=== PATIENT | male | born 1950 | race Caucasian/White ===

== ENCOUNTER 2016-05-08 05:15 | Day surgery (SDC) | payer OTHER ==
[~2016-05-08] VITALS: Ht 177.8 cm; Wt 86.2 kg
--- NOTE | ~2016-05-08 | H ---
[facility] [place] [address] HISTORY AND PHYSICAL Name: CHAUPANFILO Villafuerte Room #: [facility] M..#: [id number] Admission: Attend Phys: Lewis Thomas MD Discharge: Date of : 52 Report #: [id number] THIS REPORT FOR: //name// CC: Lewis Alejandro MD DATE OF SERVICE: 05/08/2016 PREOPERATIVE DIAGNOSIS: Bilateral inguinal hernia and umbilical hernia. HISTORY OF PRESENT ILLNESS: The patient is a 65-year-old who has had a right inguinal hernia for many years. He used to work for [employer] and was told on work physical that he had a hernia on the right. The patient started noticing the hernia getting larger at the end of 2014. Now, he is having more discomfort and pain with exercising. He walks on his treadmill. The patient would like to keep exercising. He complains of pressure in the right groin when he is constipated created. His bowels are working well. The patient has decreased urinary stream and gets up one time at night. No nausea, vomiting or bloating. No chronic cough or sneezing. 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 She also had a stroke. 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 MEDICATIONS: Includes aspirin 325 daily, Flomax 0.4 daily, escitalopram 40 mg, vitamin, Centrum Silver, glucosamine. PAST SURGICAL HISTORY: He has had a parotidectomy, has a ____ filter. He has had a spine surgery to remove the infection in 2013. ALLERGIES: The patient does not have any allergies. FAMILY HISTORY: Mother had liver cancer. He is adopted. Sibling with lung cancer. SOCIAL HISTORY: The patient quit smoking cigarette 2 years ago. Does not drink. REVIEW OF SYSTEMS: No headache, shortness of breath, chest pain, palpitation. No weakness or numbness. PHYSICAL EXAMINATION: [facility] [address] [place] [address] HISTORY AND PHYSICAL Name: RITCHIEPANFILO Noy Room #: [facility] M.R.#: [id number] Admission: Attend Phys: Lewis Thomas MD Discharge: Date of : 52 Report #: [id number] GENERAL: The patient is an elderly appearing male. He is not in acute distress, well developed, well nourished. HEENT: Pupils are reactive to light. Extraocular muscles are intact. NECK: Soft and supple, no masses, no JVD. LUNGS: Clear to auscultation. HEART: Regular rate and rhythm. He does have a systolic murmur. No gallop. CHEST: Lungs are clear to auscultation. ABDOMEN: Soft, nondistended, nontender, no mass, no ascites. The patient does have an umbilical hernia present. The patient has bilateral inguinal hernia, right is larger than the left. Testicles are descended. Both hernias are reducible. No testicular mass is detected. EXTREMITIES: No cyanosis, clubbing or edema. IMPRESSION: The patient is a 65-year-old who has bilateral inguinal hernia. The patient is complaining of discomfort on the right. Laparoscopic approach is discussed and recommended for repair of bilateral inguinal hernia and also this umbilical hernia. Properitoneal dissection was discussed. The patient will need to have a general anesthetic and the Celestin catheter placed with surgery. He understands the procedure, the risk of bleeding, infection, mesh infection, hernia recurrence and postop pain. The patient wishes to proceed. By: [id number] Lewis Thomas MD /nt
--- NOTE | ~2016-05-08 | O ---
[facility] [place] [address] OPERATIVE REPORT Name: PANIFLO RITCHIE Room #: 150-1 [facility]..#: [id number] Admission: 05/08/16 Attend Phys: Lewis Thomas MD Discharge: Date of : 52 Report #: [id number] THIS REPORT FOR: //name// CC: Lewis Alejandro MD DATE OF SERVICE: 05/08/2016 PREOPERATIVE DIAGNOSES: Bilateral inguinal hernia and umbilical hernia. POSTOPERATIVE DIAGNOSES: 1. Bilateral direct inguinal hernia. 2. Umbilical hernia. PROCEDURES PERFORMED: 1. Laparoscopic properitoneal repair of bilateral inguinal hernia with mesh. 2. Repair of umbilical hernia with mesh. SURGEON: Lewis Thomas M.D. ANESTHESIA: General anesthesia. ESTIMATED BLOOD LOSS: 5 mL. COMPLICATIONS: None. PROCEDURE NOTE: With the patient under general anesthesia, a Celestin catheter was placed. IV antibiotic was administered. Abdomen was prepped and draped in sterile fashion. A 0.25% Marcaine was used to anesthetize the skin and subcutaneous tissue. An incision was made adjacent to the umbilicus on the right side, carrying underneath the umbilicus for the umbilical hernia repair, anterior rectus sheath on the right side was identified. This was incised sharply, muscle was spread apart. The space between the muscle and the posterior sheath was then dissected with fingertip. An 11 mm balloon trocar was placed through the space. CO2 was administered. Properitoneal space was opened up with a 5 mm trocar placed about 2 inches below the umbilicus. This was placed under visualization into the properitoneal space. Dissection was carried out freeing the properitoneal space inferiorly. A direct defect identified on the right side. The lateral wall was free. The patient's peritoneum was very thin and a hole was made in the peritoneum, CO2 unfortunately traveled up into the abdominal cavity. This reduced the visualization of the properitoneal space. A 5 mm trocar was placed in the right upper abdomen under visualization. This allowed the intraperitoneal air to be evacuated. A second 5 mm trocar was placed in right lateral abdomen. Dissection on the left side was performed. There is a left direct hernia identified also. The internal ring is quite weak. [facility] [address] [place] [address] OPERATIVE REPORT Name: PANFILO RITCHIE Room #: 150-1 [facility].#: [id number] Admission: 05/08/16 Attend Phys: Lewis Thomas MD Discharge: Date of : 52 Report #: [id number] Peritoneal reflection on the left side was identified. Over the cord, there was no indirect hernia sac. The peritoneum was free and swept off of the cord structure. Right side dissection was then carried out. The hernia was reduced. The fat content was reduced from the defect, brought into the properitoneal space. There is a 2 cm direct defect, it was identified. Dissection laterally did not reveal an indirect sac. The peritoneum was free from the cord. A left-sided large 3DMax lightweight mesh was placed. This was opened up, mesh was tacked laterally to the wall with SorbaFix inferomedially to Ez's ligament with SorbaFix superomedially to the rectus muscle. Left side seated well. A second mesh was used for the right side. A large right-sided 3DMax lightweight mesh was used. This was opened up well too. This covered the direct defect well, covered the internal ring. The mesh was tacked lateral to the internal ring with SorbaFix to the abdominal wall, inferomedially to the Ez's ligament, superiorly to the rectus muscle. No bleeding was identified. CO2 was evacuated. Trocars removed. Small amount of air was placed in the intraabdominal trocar, this was used to visualize the intraabdominal content which appeared normal. Prior to the seating of the mesh, I did pull the peritoneum over each other to keep it from the mesh material. The last 5 mm trocars were then removed from the intraabdominal cavity. The umbilical hernia was dissected free. There was properitoneal fat pushing through the fascia defect. The fascia defect was about 2 cm circular defect. Fascia edges identified. The fascia edges were cleaned off. Hemostat was placed on the fascia edges. The properitoneal space was dissected free. Once the properitoneal space was opened up and reducing the hernia content, a small Ventralex ST patch was placed. This opened up well. The fascia defect was then closed with 0 Prolene suture in horizontal mattress fashion x 2. The original incision in the anterior rectus sheath was closed with 0 PDS [id number] x 2. The umbilicus skin was then sewn down to the fascia level. The skin incisions were all closed with 5-0 PDS and rectus with interrupted subcuticular fashion. Steri-Strips applied. Band-Aid used for dressing. The patient tolerated procedure well. By: 1223 [id number] Lewis Thomas MD /nt
[~2016-05-08 05:15] MED LIST: ASPIRIN EC325 MG PO; CATHFLO ACT2 MG/VIA1 IV; CEFAZOLIN2 GM/50 ML IV; CHILDREN'S ASPI81 MG; CITALOPRAM HBR40 MG PO; COLACE100 MG PO; FLOMAX0.4 MG PO; IBUPROFEN 800800 M1 PO; KLOR-CON 1010 MEQ; LINZESS145 MCG PO; LIPITOR10 MG; MIRALAX17 GM; MULTIVITAMINS1 EAC7 PO; NAFCILLIN 2 GM A2 G1; NICOTROL INHAL1 CAR1; NORCO 5-325 TA1 EACH PO; PEPCID20 MG; PEPCID20 MG PO; PERCOCET 10-321 EAC1; ROBAXIN 750 MG750 M1 PO; TRAMADOL 50 MG50 MG PO; TYLENOL EXTRA500 MG PO; TYLENOL325 MG; TYLENOL325 MG PO; VALIUM2 MG PO; VENTOLIN HFA 1818 GM INH
[2016-05-08 09:37] VITALS: BP 121/48
[2016-05-08] MEDS ORDERED: NORCO 5-325 TA1 EACH PO (11:54)
[2016-05-08 12:07] VITALS: BP 121/48
== END 2016-05-09 15:48 | disposition home or self-care (01) ==
LOC: OR 05:15 → TBA 05:15 → OR 09:10
DX: K40.20 Bilateral inguinal hernia, without obstruction or gangrene, not specified as recurrent (principal); K42.9 Umbilical hernia without obstruction or gangrene; F41.9 Anxiety disorder, unspecified; Z87.891 Personal history of nicotine dependence; Z98.890 Other specified postprocedural states
CPT/HCPCS: 50010; 50101; 50119; 50411; 50507; 50555; 50848; 53065; 53307; 56525; 56526; 62110; 62900; 64031; 70005

== ENCOUNTER → 2016-08-09 | Outpatient (CLI) | payer OTHER, MEDICARE ==
[~2016-08-09] VITALS: Ht 177.8 cm; Wt 83.9 kg
[~2016-08-09] MED LIST changes: +ATORVASTATIN CA40 MG PO
--- NOTE | ~2016-08-09 | EKG ---
[place] [address] [facility] [place] [address] ELECTROCARDIOGRAM REPORT Name: PANFILO RITCHIE [id number] Admission: 08/09/16 Attend Phys: Neil Christianson MD, Discharge: Date of : 52 Report #: [id number] THIS REPORT FOR: //name// [facility] Test Date: 2016-08-09 Test Time: 07:13:18 Pat Name: PANFILO RITCHIE Department: Room: Gender: Pick Up Driver: Merritt MONTELONGO : 1950 Requested By: Neil Christianson Order Number: [id number] MD: Neil Christianson Measurements Intervals Joanna Rate: 55 P: 75 UT: 135 QRS: -7 QRSD: 113 T: 13 QT: 438 QTc: 419 Interpretive Statements Sinus bradycardia Otherwise no significant abnormality Compared to ECG 08/23/2013 17:34:29 Sinus bradycardia is now present Electronically Signed On 08-09-2016 8:38:46 CDT by Neil Christianson [email or web address] <ELECTRONICALLY SIGNED> By: Neil Christianson MD, [facility] 08/09/16 0838 2 2 Neil Christianson MD, FAC /EPI
--- NOTE | ~2016-08-09 | CATHLAB ---
[facility] [address] [address] INVASIVE PROCEDURE REPORT Name: PANFILO RITCHIE Room #: REG [facility]#: [id number] Admission: 08/09/16 Attend Phys: Neil Christianson, Discharge: Date of : 52 Date of Service: 08/09/16 0828 Report #: [id number] THIS REPORT FOR: //name// APPROVED REPORT Patient Details Patient Status: Out-Patient Room #: The patient is a 65 year-old male Event Personnel Neil Christianson [employer] Sales Representative, Chantal Walsh RN RN, Madonna Gustafson Sandifer, David Monitor, Knisely, Ceola RN RN Indication Dyspnea Procedure Narrative The patient was brought electively to the Cardiac Catheterization Laboratory and was prepped and draped in a sterile manner. The Right Groin^ was infiltrated with 1% Lidocaine subcutaneous anesthesia. A PINNACLE 6FR Sheath #[id number] sheath was inserted into the RFA^. Coronary angiography was performed using coronary diagnostic catheters. The right coronary system was accessed and visualized with a JR4 catheter. The left coronary system was accessed and visualized with a JL4 catheter. The patient tolerated the procedure well and there were no complications associated with the procedure. Intraoperative Conscious Sedation Sedation start time: 7:50 Case end Time: 8:02 Fentanyl 50.0 mcg Versed 1.0 mg Fluoro Time: 0.56 minutes Dose: 93.1 mGy Contrast Type and Amount: Omnipaque 65 ml Coronary Angiography The patient's coronary anatomy is right dominant. [place] Artery Percent Stenosis Left Main: 0 % Prox LAD: 0 % Mid/Distal LAD: 0 % Circumflex: 0 % RCA: 0 % Ramus: 0 % Left Ventriculography [facility] [address] [place] [address] INVASIVE PROCEDURE REPORT Name: PANFILO RITCHIE Room #: REG [facility]#: [id number] Admission: 08/09/16 Attend Phys: Neil Christianson, Discharge: Date of : 52 Date of Service: 08/09/16827 Report #: [id number] Left Ventriculography was not performed. Hemodynamics The aortic pressure is 138/48 mmHg with a mean of 80 mmHg. Conclusion 1. Normal coronary vasculature. Right dominant system <ELECTRONICALLY SIGNED> By: Neil Christianson MD, FACC 08/09/16827 7 7 Neil Christianson MD, FACC /INF
[2016-08-09 07:04] VITALS: BP 124/45
== END ==
LOC: CATH 06:33
DX: R06.00 Dyspnea, unspecified (principal)

== ENCOUNTER → 2018-08-07 | Outpatient (CLI) | payer OTHER, MEDICARE | LOC: RAD 14:05 | DX: J84.10 Pulmonary fibrosis, unspecified (principal); I25.10 Atherosclerotic heart disease of native coronary artery without angina pectoris ==

== ENCOUNTER → 2019-03-06 | Outpatient (CLI) | payer OTHER, MEDICARE | LOC: RAD 10:48 | DX: J84.10 Pulmonary fibrosis, unspecified (principal) ==

== ENCOUNTER → 2019-07-04 | Outpatient (CLI) | payer OTHER, MEDICARE | LOC: SJCVC 13:18 | PROVIDERS: ATTEND Internal Medicine | DX: I35.1 Nonrheumatic aortic (valve) insufficiency (principal); I33.0 Acute and subacute infective endocarditis; E78.5 Hyperlipidemia, unspecified; I69.30 Unspecified sequelae of cerebral infarction; J43.2 Centrilobular emphysema; I25.118 Atherosclerotic heart disease of native coronary artery with other forms of angina pectoris; I10 Essential (primary) hypertension; Z79.899 Other long term (current) drug therapy; Z87.891 Personal history of nicotine dependence ==

== ENCOUNTER → 2019-07-11 | Outpatient (CLI) | payer OTHER, MEDICARE | LOC: SJCVC 13:26 | PROVIDERS: ATTEND Internal Medicine | DX: I10 Essential (primary) hypertension (principal) ==

== ENCOUNTER → 2019-12-03 | Outpatient (CLI) | payer OTHER, MEDICARE | LOC: LAB 14:18 | PROVIDERS: ATTEND Internal Medicine Gastroenterology | DX: Z01.812 Encounter for preprocedural laboratory examination (principal); Z20.828 Contact with and (suspected) exposure to other viral communicable diseases ==

== ENCOUNTER → 2019-12-09 | Outpatient (CLI) | payer OTHER, MEDICARE ==
[~2019-12-09] VITALS: Ht 177.8 cm; Wt 86.2 kg
[~2019-12-09] MED LIST changes: -ATORVASTATIN CA40 MG PO; +LIPITOR40 MG PO
--- NOTE | 2019-12-11 17:06 | PATH ---
[facility] [place] [address] PATHOLOGY RPT PROCEDURE Name: PUTNAMPANFILO ANDRE Room #: REG [facility] M.R.#: [id number] Admission: 12/09/19 Date of : 52 Discharge: Report #: [id number] Path Case #: [id number] L[facility] Accession Number: [id number] . 01 Material submitted: . PART A: colon - ASCENDING COLON POLYP X7. Modifiers: ascending PART B: colon - DESCENDING COLON POLYP X5. Modifiers: descending PART C: colon - SIGMOID COLON POLYP X2. Modifiers: sigmoid . 01 Clinical history: . HX OF POLYPS . 02 Diagnosis: A. Polyps x7, ascending colon polyps, endoscopic biopsy: - Multiple fragments of tubular adenoma. - Negative for high-grade dysplasia. . B. Polyps x5, descending colon polyps, endoscopic biopsy: - Multiple fragments of tubular adenoma as well as tubulovillous adenoma. - Negative for high-grade dysplasia. . C. Polyps x2, sigmoid colon, endoscopic biopsy: - Larger fragment showing a tubular adenoma without high-grade dysplasia. - Stalk showing unremarkable mucosa at margin. - One fragment showing hyperplastic polyp without any dysplasia. . 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 02 Electronically signed: . Linda Ray MD, Pathologist NPI- [id number] . 01 Gross description: . A. The specimen is received in formalin, labeled "Panfilo Putnam, ascending colon polyp x7". Received are multiple segments of pale zavala soft tissue ranging in size from 0.2 to 0.7 cm in maximum dimensions. The specimen is submitted entirely in cassette A1 and A2. . B. The specimen is received in formalin, labeled "Panfilo Putnam, descending colon polyp x5". Received are multiple segments of pale zavala soft tissue ranging in size from 0.2 to 0.7 cm in maximum dimensions. The specimen is submitted entirely in cassette B1 and B2. . C. The specimen is received in formalin, labeled "Panfilo Putnam, sigmoid colon polyp x2". Received are two segments of pale zavala soft tissue ranging in size from 0.5 to 1.7 cm in maximum dimensions. The larger [facility] [address] [place] [address] PATHOLOGY RPT PROCEDURE Name: CHAUPANFILO ANDRE Room #: REG CLI Mihir#: [id number] Admission: 12/09/19 Date of : 52 Discharge: Report #: [id number] Path Case #: [id number] segment has an attached stalk measuring 0.5 cm in length by 0.6 cm in diameter. The surgical margin is inked and the larger segment is serially sectioned. The specimen is submitted entirely in cassette C1 through C4. (CAA; 12/10/2019) QAC/QAC 12/10/2019 1339 Local . 02 Pathologist provided ICD-10: D12.2, D12.4, D12.5 . 02 CPT . 803437, 008304, 523729 Specimen Comment: A courtesy copy of this report has been sent to [phone] Specimen Comment: Report sent to DR KOROMA Performed at: [address], [place] [id number] MD Johnathan Kitchen MD Phone: [phone] Performed at: [address] [id number] MD Linda Ray MD Phone: [phone]
== END | disposition home or self-care (01) ==
LOC: GI 08:01
PROVIDERS: ATTEND Internal Medicine Gastroenterology
DX: Z12.11 Encounter for screening for malignant neoplasm of colon (principal); Z86.010 Personal history of colon polyps; D12.2 Benign neoplasm of ascending colon; D12.3 Benign neoplasm of transverse colon; D12.5 Benign neoplasm of sigmoid colon; K57.30 Diverticulosis of large intestine without perforation or abscess without bleeding; K64.8 Other hemorrhoids; E78.00 Pure hypercholesterolemia, unspecified; F41.9 Anxiety disorder, unspecified; Z98.890 Other specified postprocedural states; Z79.899 Other long term (current) drug therapy; Z87.891 Personal history of nicotine dependence; Z86.73 Personal history of transient ischemic attack (TIA), and cerebral infarction without residual deficits
CPT/HCPCS: 62110; 62900

== ENCOUNTER → 2020-03-03 | Outpatient (CLI) | payer OTHER, MEDICARE | LOC: LAB 10:38 | PROVIDERS: ATTEND Internal Medicine | DX: Z01.812 Encounter for preprocedural laboratory examination (principal); Z20.822 Contact with and (suspected) exposure to COVID-19 ==

== ENCOUNTER → 2020-03-09 | Outpatient (CLI) | payer OTHER, MEDICARE ==
--- NOTE | 2020-03-24 09:56 | PFR/MVV ---
[facility] [place] [address] PULMONARY FUNCTION MVV/REPORT Name: PANFILO RITCHIE Room #: REG [facility] Mihir#: [id number] Admission: 03/09/20 Attend Phys: Neil Christianson MD, [facility] Discharge: Date of : 52 Report #: [id number] THIS REPORT FOR: //name// COPIES FOR: AGE: 69 SEX/RACE: M/C >> SPIROMETRY: (BTPS) Height: 68 in cm Weight: 201 lbs kg Exam Date: 03/09/20 PRE-RX POST-RX PRED BEST %PRED BEST %PRED %CHG FVC LITERS . 4.12 . 3.67 . 89 . 3.75 . 91 . 2 FEV1 LITERS . 2.82 . 2.33 . 82 . 2.41 . 85 . 4 FEV1/FVC % . 69 . 63 . 91 . 64 . 92 . 1 VHN54-26% L/Sec . 2.65 . 1.04 . 39 . 1.06 . 40 . 2 PEF L/SEC . 7.86 . 6.64 . 84 . 6.98 . 89 . 5 FEF50/FIF50 UNITLESS . <1.00 . 0.42 . . 0.61 . . 46 MVV L/Min . 123 . 115 . 93 f 1/Min . . 135 . >> LUNG VOLUMES: (BTPS) PRE-RX POST-RX PRED AVG %PRED AVG %PRED %CHG VC Liters . 4.12 . 3.67 . 89 . . . TLC Liters . 6.06 . 6.10 . 101 . . . RV Liters . 2.37 . 2.43 . 102 . . . RV/TLC % . 40 . 40 . [address] . . . [address] Liters . 3.22 . 3.04 . 94 . . . FRC N2 Liters . 3.22 . . . . . ERV Liters . 1.41 . 0.61 . 43 . . . IC Liters . 2.82 . 2.80 . 99 . . . >> DIFFUSION: DLCO ml/Min/mmHg . 22.4 . 14.3 . 64 . . . DL Mary ml/Min/mmHg . 22.4 . 14.3 . 64 . . . DLCO/VA ml/Min/mmHg . 3.61 . 2.98 . 83 . . . VA Liters . 6.74 . 4.79 . 71 . . . [facility] [address] [place] [address] PULMONARY FUNCTION MVV/REPORT Name: PANFILO RITCHIE Room #: REG [facility]#: [id number] Admission: 03/09/20 Attend Phys: Neil Christianson MD, [facility] Discharge: Date of : 52 Report #: [id number] COMMENTS: COMMENTS: >> RESISTANCE: PRE-RX PRED AVG %PRED Raw Total cmH20/L/Sec . . 5.54 . Raw Insp cmH20/L/Sec . . 2.42 . Raw Exp cmH20/L/Sec . . 3.51 . Raw cmH20/L/Sec . 1.43 . 3.86 . 269 Gaw L/Sec/cmH20 . 0.773 . 0.259 . 34 sRaw cmH20 Sec . 4.62 . 16.87 . 366 sGaw l/cmH20 Sec . 0.217 . 0.059 . 27 Vtq Liters . . 4.37 . # = OUTSIDE 95% CONFIDENCE INTERVAL CALIBRATION: PRED: 3.00 ACTUAL: EXP 3.01 INSP 3.02 [facility]-OL10-06 [facility] N-1804-4 >> INTERPRETATION/IMPRESSION: DATE OF SERVICE: 03/09/2020 SPIROMETRY: FEV1 is 2.33 liters (82%), FVC is 3.67 (89%). FEV1/FVC ratio is 63%. Postbronchodilator therapy is not significant. Total lung capacity is 6.10 liters (101%). Residual volume is 2.43 liters (102%). Diffusing capacity is 64%. IMPRESSION: Pulmonary function studies are consistent with a mild obstructive airflow defect. There is no significant response to bronchodilator therapy. Lung volumes are normal. Diffusing capacity is mildly decreased. By: Chris Delarosa MD /nt
== END ==
LOC: PUL 08:48
PROVIDERS: ATTEND Internal Medicine
DX: J43.2 Centrilobular emphysema (principal)

== ENCOUNTER → 2020-08-12 | Outpatient (CLI) | payer OTHER, MEDICARE | LOC: SJCVCIMAG 07:41 | PROVIDERS: ATTEND Internal Medicine | DX: I08.0 Rheumatic disorders of both mitral and aortic valves (principal); R94.31 Abnormal electrocardiogram [ECG] [EKG]; I11.9 Hypertensive heart disease without heart failure; I25.118 Atherosclerotic heart disease of native coronary artery with other forms of angina pectoris; I33.0 Acute and subacute infective endocarditis; I10 Essential (primary) hypertension; E78.5 Hyperlipidemia, unspecified; I69.30 Unspecified sequelae of cerebral infarction; J43.2 Centrilobular emphysema; Z79.82 Long term (current) use of aspirin; Z79.899 Other long term (current) drug therapy; Z86.718 Personal history of other venous thrombosis and embolism; Z86.711 Personal history of pulmonary embolism; Z87.891 Personal history of nicotine dependence ==

== ENCOUNTER → 2020-08-17 | Outpatient (CLI) | payer OTHER, MEDICARE ==
[~2020-08-17] VITALS: Ht 177.8 cm; Wt 88.5 kg
[~2020-08-17] MED LIST changes: +ASA81BEC PO; -MULTIVITAMINS1 EAC7 PO; +PROSCAR 5MG TABL5 MG PO; +SUPER THERAVIT1 EACH PO
--- NOTE | 2020-08-19 18:07 | PATH ---
[facility] [place] [address] PATHOLOGY RPT PROCEDURE Name: PANFILO PUTNAM Room #: REG MAEGAN Quiñones.#: [id number] Admission: 08/17/20 Date of : 52 Discharge: Report #: [id number] Path Case #: [id number] LCA Accession Number: [id number] . 01 Material submitted: . PART A: splenic flexure - BX SPLENIC FLEXURE POLYP X2 PART B: sigmoid colon - SIGMOID COLON POLYP . 01 Clinical history: . 6 MONTH FOLLOW UP, PIECEMEAL POLYPECTOMY COLONOSCOPY . 02 Diagnosis: A. Polyp x2, splenic flexure polyp, endoscopic biopsy: - Multiple fragments showing tubular adenoma. - Negative for high-grade dysplasia. . B. Polyp, sigmoid colon polyp, endoscopic biopsy: - Hyperplastic polyp. - Negative for dysplasia. . (IUV:trisha; 08/19/2020) MBR 08/19/2020 1204 Local . 02 Electronically signed: . Linda Ray MD, Pathologist NPI- [id number] . 01 Gross description: . A. The specimen is received in formalin, labeled "Panfilo Putnam, splenic flexure polyp". Received are 5 segments of pale zavala tissue ranging in size from 0.2 to 0.4 cm in maximum dimensions. The specimen is submitted entirely in cassette A1. . B. The specimen is received in formalin, labeled "Panfilo Putnam, sigmoid colon polyp". Received is a segment of pale zavala tissue measuring 0.4 cm in maximum dimensions. The specimen is submitted entirely in cassette B1.([facility]; 08/18/2020) [facility] 08/18/2020 [facility] Local . 02 Pathologist provided ICD-10: D12.3, K63.5 . 02 CPT . 612959, 868178 Specimen Comment: A courtesy copy of this report has been sent to [phone] [address] [address] PATHOLOGY RPT PROCEDURE Name: PANFILO PUTNAM Room #: REG [facility].#: [id number] Admission: 08/17/20 Date of : 52 Discharge: Report #: [id number] Path Case #: [id number] Specimen Comment: [phone] Specimen Comment: Report sent to / DR KOROMA Performed at: [address], [place], [place] [id number] MD Johnathan Kitchen MD Phone: [phone] Performed at: [address] [id number] MD Linda Ray MD Phone: [phone]
== END | disposition home or self-care (01) ==
LOC: GI 09:01 → EDSTATUS 10:39 → GI 10:43
PROVIDERS: ATTEND Internal Medicine Gastroenterology
DX: Z09 Encounter for follow-up examination after completed treatment for conditions other than malignant neoplasm (principal); Z86.010 Personal history of colon polyps; D12.3 Benign neoplasm of transverse colon; K57.30 Diverticulosis of large intestine without perforation or abscess without bleeding; K64.8 Other hemorrhoids; E78.00 Pure hypercholesterolemia, unspecified; N40.0 Benign prostatic hyperplasia without lower urinary tract symptoms; F41.9 Anxiety disorder, unspecified; Z98.890 Other specified postprocedural states; Z79.899 Other long term (current) drug therapy; Z86.73 Personal history of transient ischemic attack (TIA), and cerebral infarction without residual deficits; Z87.891 Personal history of nicotine dependence
CPT/HCPCS: 62110; 62900

== ENCOUNTER → 2021-03-02 | Outpatient (CLI) | payer OTHER | LOC: RAD 13:57 | PROVIDERS: ATTEND Internal Medicine | DX: R06.00 Dyspnea, unspecified (principal) ==